=== PATIENT | female | born 1940 | race Caucasian/White ===

== ENCOUNTER → 2016-04-21 | Outpatient (CLI) | payer OTHER ==
[~2016-04-21] MED LIST: ADULT LOW DOSE81 MG PO; ALLOPURINOL 10100 M1 PO; ALLOPURINOL 30300 M2 PO; ANASTROZOLE1 MG PO; ANTACID650 MG PO; ARIMIDEX1 MG PO; ASPIR 8181 MG PO; B-12 DOTS500 MCG PO; BETADINE240 ML TOP; BETADINE30 ML TOP; BIOTIN1 M1 PO; BIOTIN10 MG PO; BIOTIN2500 MCG PO; BUMEX PO; CALCIUM 500+D1 EAC2 PO; CALCIUM 600 +1 EAC1 PO; CALCIUM500 MG PO; CARVEDILOL6.25 MG PO; CICLOPIROX15 GM TP; CIPRO500 MG PO; CLEOCIN HCL150 MG PO; CLEOCIN HCL300 MG PO; CLOTRIMAZOLE10 MG BUCCAL; CO Q-10100 MG PO; COREG6.25 MG PO; COUMADIN 1MG TAB1 M1 NG; COUMADIN 5 MG TA5 M1 PO; DEMADEX20 MG; DEMADEX20 MG PO; DOXYCYCLINE 10100 MG PO; FISH OIL 1,001000 M2 PO; FLAGYL500 MG PO; FUROSEMIDE 20 M20 M1 PO; GABAPENTIN 100100 MG PO; GEMFIBROZIL 60600 MG PO; GENTAMICIN 0.1%15 G2 TOP; HUMALOG100 UNIT/1 SUBQ; HYDROCODONE-APA1 TA1 PO; IRON27 MG PO; K-DUR 20 MEQ T20 MEQ PO; KEFLEX500 M1 PO; LANTUS100 UNIT/M SUBQ; LASIX 40 MG TAB40 M2 PO; LEVEMIR SUBQ; LEVOTHYROXINE0.05 MG PO; LIPITOR 20 MG T20 M1 PO; LISINOPRIL2.5 M1 PO; LISINOPRIL20 MG PO; MAGOX 400400 MG PO; METFORMIN 500500 MG PO; METOLAZONE 2.52.5 M1; METOLAZONE 2.52.5 M1 PO; MILK OF MA2400 MG/10 PO; MINOCIN100 MG PO; MINOCYCLINE 5050 M1 PO; MINOCYCLINE HC100 M2 PO; MIRALAX17 GM PO; NOVOLOG100 UNIT/1 SUBQ; OXYCODONE HCL 55 MG PO; POTASSIUM20 PO; PRADAXA75 MG PO; PROBIOTIC1 EAC1 PO; PYRIDOXINE HCL100 MG PO; RELION NOV100 UNIT/1 SQ; SANTYL OINTMENT30 G1 TOP; SANTYL OINTMENT30 G1 TP; TRINATE TABLET1 TAB PO; TUMS PO; TYLENOL325 MG PO; UNICOMPLEX M TA1 TA1 PO; VANCOCIN 125 M125 M1 MC; VIBRAMYCIN 100100 MG PO; VITAMIN B-121000 MCG PO; VITAMIN B-12500 MCG PO; VITAMIN B-6100 MG PO; VITAMIN B-625 MG PO; VITAMIN C1000 MG PO; VITAMIN D1000 UNI1 PO; VITAMIN D35000 UNIT PO; VITAMIN E400 UNI7 PO; VITAMINC500 PO; ZINC50 M1 PO; ZYVOX600 MG PO
== END ==
LOC: HYPER 07:13
DX: L89.613 Pressure ulcer of right heel, stage 3 (principal); I70.245 Atherosclerosis of native arteries of left leg with ulceration of other part of foot; E11.42 Type 2 diabetes mellitus with diabetic polyneuropathy; R60.9 Edema, unspecified; E11.69 Type 2 diabetes mellitus with other specified complication; Z79.4 Long term (current) use of insulin; E11.22 Type 2 diabetes mellitus with diabetic chronic kidney disease; N18.9 Chronic kidney disease, unspecified; D50.9 Iron deficiency anemia, unspecified; Z95.0 Presence of cardiac pacemaker

== ENCOUNTER → 2016-05-05 | Outpatient (CLI) | payer OTHER | LOC: HYPER 07:07 | DX: L89.613 Pressure ulcer of right heel, stage 3 (principal); L89.893 Pressure ulcer of other site, stage 3; I87.2 Venous insufficiency (chronic) (peripheral); I70.245 Atherosclerosis of native arteries of left leg with ulceration of other part of foot; E11.42 Type 2 diabetes mellitus with diabetic polyneuropathy; I48.91 Unspecified atrial fibrillation; I25.10 Atherosclerotic heart disease of native coronary artery without angina pectoris; E78.00 Pure hypercholesterolemia, unspecified; E11.22 Type 2 diabetes mellitus with diabetic chronic kidney disease; N18.9 Chronic kidney disease, unspecified; I12.9 Hypertensive chronic kidney disease with stage 1 through stage 4 chronic kidney disease, or unspecified chronic kidney disease; E11.69 Type 2 diabetes mellitus with other specified complication; Z79.4 Long term (current) use of insulin; Z95.0 Presence of cardiac pacemaker; Z79.82 Long term (current) use of aspirin; Z85.3 Personal history of malignant neoplasm of breast ==

== ENCOUNTER → 2016-07-06 | Outpatient (CLI) | payer OTHER ==
[~2016-07-06] MED LIST changes: -DOXYCYCLINE 10100 MG PO; -METOLAZONE 2.52.5 M1 PO
== END ==
LOC: HYPER 07:05
DX: I70.245 Atherosclerosis of native arteries of left leg with ulceration of other part of foot (principal); L89.613 Pressure ulcer of right heel, stage 3; L89.899 Pressure ulcer of other site, unspecified stage; E11.42 Type 2 diabetes mellitus with diabetic polyneuropathy; E11.22 Type 2 diabetes mellitus with diabetic chronic kidney disease; I12.9 Hypertensive chronic kidney disease with stage 1 through stage 4 chronic kidney disease, or unspecified chronic kidney disease; N18.9 Chronic kidney disease, unspecified; I48.91 Unspecified atrial fibrillation; Z85.3 Personal history of malignant neoplasm of breast; E78.00 Pure hypercholesterolemia, unspecified; Z95.0 Presence of cardiac pacemaker; Z79.4 Long term (current) use of insulin

== ENCOUNTER 2016-07-07 12:20 | Inpatient (IN) | payer OTHER ==
[~2016-07-07] VITALS: Ht 177.8 cm; Wt 120.2 kg
--- NOTE | ~2016-07-07 | 2DMMODE ---
[facility] [place] [address] 2 D/M-MODE ECHOCARDIOGRAM Name: ETHEL PEOPLES Room #: 210-P ADM IN M.R.#: [id number] Admission: 07/07/16 Attend Phys: Ramirez Maguire, Discharge: Date of : 40 Date of Service: 07/08/16 1136 Report #: [id number] THIS REPORT FOR: //name// APPROVED REPORT EXAM: Comprehensive 2D, Doppler, and color-flow Echocardiogram Patient Location: Echo lab/210 Blood Pressure: 146/71 mmHg HR: 73 bpm Rhythm: Pacemaker Other Information Study Quality: Adequate Indications Congestive Heart Failure Hx: CAD, Afib, PPM, HLP, DM 2D Dimensions RVDd: 46.31 mm LVEF(%): 53.52 (>50%) IVSd: 10.78 (7-11mm) LVOT Diam: 19.38 (18-24mm) LVDd: 51.48 mm PWd: 10.76 (7-11mm) LVDs: 37.18 (25-40mm) IVC: 32.00 mm Aortic Root: 31.00 mm Thakkar's LVEF: 53.52 % Volumes Left Atrial Volume (Systole) Single Plane 4CH: 54.92 mL Single Plane 2CH: 79.31 mL LA ESV Index: 29.00 mL/m2 Aortic Valve AoV Peak Rajiv.: 1.73 m/s AO Peak Gr.: 11.97 mmHg LV Max P.25 mmHg LV Max: 1.03 m/s Mitral Valve MV E Max Rajiv.: 1.89 m/s MV Decel. Time: 129.65 ms Pulmonary Valve [facility] [address] [place] [address] 2 D/M-MODE ECHOCARDIOGRAM Name: ETHEL PEOPLES Room #: 210-P [facility] IN [facility].#: [id number] Admission: 07/07/16 Attend Phys: Ramirez Maguire, Discharge: Date of : 40 Date of Service: 07/08/16 1136 Report #: [id number] PV Peak Rajiv.: 1.13 m/s PV Peak Gr.: 5.16 mmHg Tricuspid Valve TR Peak Rajiv.: 4.66 m/s RAP Estimate: 15.00 mmHg TR Peak Gr.: 86.96 mmHg RVSP: 103.00 mmHg Left Ventricle The left ventricle is normal size. Paradoxical septal and distal inferior wall motion consistent with pacing There is normal left ventricular wall thickness. Left ventricular systolic function is lower limits of normal to mildly depressed. LVEF is 45-50%. Diastolic function is indeterminate. Right Ventricle Right ventricle is dilated. Right ventricle is mildly hypokinetic. Pacemaker lead is present in the right ventricle. Atria Left atrium is mildly dilated. Right atrium is dilated. Aortic Valve Aortic valve is calcified. No aortic regurgitation is present. There is no aortic valvular stenosis. Mitral Valve Mitral valve leaflets are thickened and calcified. Moderate to severe mitral annular calcification. Moderate mitral regurgitation. Tricuspid Valve The tricuspid valve is normal in structure. There is moderate tricuspid regurgitation. The right atrial pressure is estimated at 15 mmHg. There is severe pulmonary hypertension with an estimated PAP of 103mmHg. Pulmonic Valve The pulmonary valve is normal in structure. There is no pulmonic valvular regurgitation. Great Vessels The aortic root is normal in size. Ascending aorta is not well visualized. IVC is dilated and collapses <50% with inspiration. Pericardium There is no pericardial effusion. [facility] [address] [place] [address] 2 D/M-MODE [facility]ARDIOGRAM [facility] Room [facility]: [facility]P [facility] IN M.R.#: [id number] Admission: 07/07/16 Attend Phys: Ramirez Maguire, Discharge: Date of : 40 Date of Service: 07/08/16 1136 Report #: [id number] <Conclusion> Left ventricular systolic function is lower limits of normal to mildly depressed. Paradoxical septal and distal inferior wall motion consistent with pacing. LVEF 45-50%. Aortic valve is calcified without stenosis or insufficiency Mitral valve leaflets are thickened and calcified. Moderate to severe mitral annular calcification. Moderate mitral regurgitation. There is moderate tricuspid regurgitation. The right atrial pressure is estimated at 15 mmHg. There is severe pulmonary hypertension with an estimated PAP of 100 mmHg. There is no pericardial effusion. Pacing wires in right heart. <ELECTRONICALLY SIGNED> By: Sarath Emmanuel MD, FACC 07/08/16 1136 1136 1136 Sarath Emmanuel MD, FACC /INF
--- NOTE | ~2016-07-07 | H ---
[facility] [place] [address] HISTORY AND PHYSICAL Name: ETHEL PEOPLES Room #: 210-P DIS IN M.R.#: [id number] Admission: 07/07/16 Attend Phys: Ramirez Maguire MD, Discharge: 07/09/16 Date of : 40 Report #: [id number] THIS REPORT FOR: //name// CC: Ramirez Babcock DATE OF SERVICE: 07/07/2016 WOUND CARE HISTORY AND PHYSICAL REFERRING PHYSICIAN: Dr. Maguire. CHIEF COMPLAINT: Lower extremity ulcers and edema. HISTORY OF PRESENT ILLNESS: This is a 75-year-old white female, who I had been following for several months for recurrent lower extremity ulcerations and swelling. The patient was just seen by myself 2 days ago and her right heel decubitus ulcer, which had been a stage III, has nearly resolved as well as a plantar foot ulcer on the right, which is also now calloused and nearly resolved and one pretibial ulcer on each lower extremity with associated edema. The patient has already refused any type of compression in the past. The patient is agreeable to elevating her legs. The patient admitted the fact that she had increasing weight gain when I saw her 2 days ago, but refused to be hospitalized then and was hospitalized after she saw Dr. Maguire yesterday afternoon. I have been asked to assist in the wound care at this time. PAST MEDICAL HISTORY: Coronary artery disease with the ischemic cardiomyopathy, sick sinus syndrome, status post permanent pacemaker placement, permanent atrial fibrillation, type 2 diabetes, chronic lower extremity wounds and edema, hypertension, and asthma. CURRENT MEDICATIONS: Reviewed. DRUG ALLERGIES: AMOXICILLIN, LEVAQUIN, METOPROLOL AND PENICILLIN. PHYSICAL EXAMINATION: VITAL SIGNS: Stable. The patient is afebrile. GENERAL: This is alert and oriented x 3, pleasant white female who is in no acute distress. HEENT: Normocephalic, atraumatic. Mucous membranes are moist. Pupils are round. Sclerae are white. LUNGS: Slight diminished breath sounds heard throughout, but no rhonchi or wheezes. HEART: Irregularly irregular with a 2/6 systolic ejection murmur. ABDOMEN: Obese, soft, nontender. EXTREMITIES: The patient has 3+ edema, which is chronic for her with 2 [facility] [address] [place] [address] [facility]YS[facility] Room #: 210-P [facility] IN .R.#: [id number] Admission: 07/07/16 Attend Phys: Ramirez Maguire MD, Discharge: 07/09/16 Date of : 40 Report #: [id number] pretibial ulcerations which are clean and granulating. There is serous fluid draining from these ulcerations. There is also a stage 2 decubitus ulcer on the right heel which has nearly resolved, which is clean and granulating. There is a plantar right foot callus which is dry and intact without tenderness or signs of infection or any open ulceration. Bilateral heels are intact. NEUROLOGIC: Cranial nerves 2-12 grossly intact. Motor and sensory grossly intact. LABORATORY DATA: White count 5.2, hemoglobin 9.3, BUN 47, creatinine 1.2. IMPRESSION: 1. Chronic decubitus ulcer to the right heel stage III - nearly resolved. 2. Chronic callus, plantar aspect of the right foot, overall stable. 3. Superficial ulcerations to bilateral pretibial regions limited to breakdown of skin. 4. Chronic lower extremity edema. 5. Chronic atrial fibrillation. 6. Acute on chronic congestive heart failure. PLAN: At this time, we will use Optifoam Ag to the mid pretibial ulcerations changed every 2 days. Same will be used on the right heel ulcer. The patient refuses any compression wraps at this time. We will make sure we maximize the patient's oral supplementation of protein for healing. We will continue to follow the patient in the hospital. By: 1740 0502 Juan Carlos Mccurdy MD /nt
--- NOTE | ~2016-07-07 | HC ---
[facility] [place] [address] CONSULTATION Name: ETHEL PEOPLES Room #: 210-P DIS IN M.R.#: [id number] Admission: 07/07/16 Attend Phys: Ramirez Magurie MD, Discharge: 07/09/16 Date of : 40 Report #: [id number] THIS REPORT FOR: //name// CC: Ramirez Babcock PRIMARY PHYSICIAN: Sid Babcock MD REFERRAL PHYSICIAN: Ramirez Maguire MD [facility] REASON FOR REFERRAL: Dyspnea. HISTORY OF PRESENT ILLNESS: The patient is a 75-year-old white female who was admitted with heart failure. A pulmonary consultation was requested regarding dyspnea. The patient was last hospitalized in January 2016. She was treated for cellulitis and diabetic foot infection. She has done very well until more recently when she noticed that her weight has increased. She also noticed increasing edema. She is felt to have acute on chronic diastolic heart failure. She is currently on Lasix drip. The patient states that she is much improved. The patient also had a recent echocardiogram done earlier today, which showed reduced ejection fraction of about 45-50%. LV function is felt to be mildly reduced. Aortic valve was unremarkable. There is moderate mitral regurgitation. Pulmonary artery pressure was felt, was measured at 100 mmHg. The patient states that she has been battling obesity for most of her life. Up to 30 years of age, she has taken numerous anorexic agents. She does not recall taking fen-phen. She has also been battling lower extremity edema for most of her life, starting in 20s. Otherwise, denies any recent febrile illness, chest pain, productive cough or hemoptysis. PAST MEDICAL HISTORY: Remarkable for coronary artery disease with ischemic cardiomyopathy, ejection fraction approximately 45%, sick sinus syndrome, status post permanent pacemaker placement; hypocholesterolemia, permanent atrial fibrillation, diabetes mellitus type 2, chronic lower extremity wounds, hypertension, history of asthma, iron deficiency anemia, chronic kidney disease stage 3. She also has a past history of colon cancer along with breast cancer. [address] [address] CONSULTATION Name: ETHEL PEOPLES Room #: 210-P [facility] IN M.R.#: [id number] Admission: 07/07/16 Attend Phys: Ramirez Maguire MD, Discharge: 07/09/16 Date of : 40 Report #: [id number] PAST SURGICAL HISTORY: Remarkable for left mastectomy, partial colectomy, herniorrhaphy, and cataract surgery. ALLERGIES: AMOXICILLIN, which causes rash; LEVOFLOXACIN causes myalgias, METOPROLOL, reactions unknown; and PENICILLIN as above. HOME MEDICATIONS: List reviewed. This would include potassium supplements, torsemide, Arimidex, Zyloprim, NovoLog, MiraLax, Coreg, vitamin D supplements, Lipitor, Levemir, aspirin, vitamin C supplements, ciclopirox, levothyroxine, milk of magnesia. FAMILY HISTORY: Noncontributory. SOCIAL HISTORY: She is . She has no children. She has never smoked. She denies any alcohol use. REVIEW OF SYSTEMS: As mentioned above, is notable for obesity for most of her life along with chronic lower extremity edema. Otherwise, 10-point system review negative. PHYSICAL EXAMINATION: GENERAL: She is awake, alert, in no apparent distress. VITAL SIGNS: Temperature is 98 degrees Fahrenheit, pulse is 74, respiratory rate is 16, blood pressure 143/59 mmHg, saturation 97% on room air. HEENT: Normocephalic and atraumatic. NECK: Supple without any lymphadenopathy or thyromegaly. CHEST: Breath sounds are clear bilaterally without any rales or wheezes. CARDIOVASCULAR: Irregularly irregular, no obvious murmurs or gallop. Pulses are 2+/4 positive bilaterally. BREASTS: Deferred. ABDOMEN: Obese, soft, nontender, no organomegaly or masses felt. GENITOURINARY: Deferred. RECTAL: Deferred. EXTREMITIES: No cyanosis or clubbing, but remarkable for 4+/4+ bilateral pretibial edema. LABORATORY DATA: Chest x-ray shows mild interstitial prominence, otherwise no consolidation . Echocardiogram as mentioned above, reduced EF of approximately 45%, pulmonary artery pressure measuring 100 mmHg, moderate mitral regurgitation. Electrolytes: Sodium 143, potassium 3.5, chloride 105, CO2 of 28, BUN is 47, creatinine is 1.2. WBC is 5200, hemoglobin 9.3, platelets reduced at 93,000. Albumin 3.5. IMPRESSION: 1. Acute on chronic systolic and diastolic heart failure. 2. History of asthma, mild, without evidence of exacerbation at this time. [address] [address] CONSULTATION Name: Room #: 210-P [facility] IN M.R.#: [id number] Admission: 07/07/16 Attend Phys: Ramirez Maguire MD, Discharge: 07/09/16 Date of : 40 Report #: [id number] 3. Severe pulmonary hypertension. Based on her history, this is likely related to anorexic agent with valvular heart disease contributing. The patient states that she has never had a workup in the past. 4. Obesity. She should be screened for possible sleep related breathing disorder. 5. Atrial fibrillation, status post permanent pacemaker placement. 6. Coronary artery disease with ischemic cardiomyopathy as mentioned above. Part of the cardiomyopathy may also be related to valvular heart disease. 7. Diabetes mellitus type 2. 8. Chronic lower extremity edema, may be related to lymphedema, but suspect a component of cor pulmonale. RECOMMENDATION AND DISCUSSION: Agree with plans of diuresis. In terms of asthma, she appears to be stable. We will continue bronchodilator therapy. In regards to pulmonary hypertension, she would benefit from outpatient workup. As mentioned above, suspect she also has a component of cor pulmonale resulting in lower extremity edema. As mentioned, she would benefit from screening for possible sleep related breathing disorder if not already. This can be also discussed in the outpatient setting. Thank you for the consultation. <ELECTRONICALLY SIGNED> By: Praveen Ricks MD 07/09/16 1330 1316 1622 Praveen Ricks MD /nt
[2016-07-07 08:55] VITALS: BP 123/59
[~2016-07-07 12:20] MED LIST changes: -BIOTIN1 M1 PO; -MAGOX 400400 MG PO; -VITAMIN B-12500 MCG PO
[2016-07-07 16:43] VITALS: BP 140/68
[2016-07-07 16:50] LABS: ALBUMIN 3.5 g/dL (3.4-5.0); CALCIUM 8.9 mg/dL (8.5-10.1); CREATININE 1.3 mg/dL (0.6-1.3); POTASSIUM 3.9 mmol/L (3.5-5.1); TOTAL BILIRUBIN 0.6 mg/dL (<0.1-1.0)
[2016-07-07] MEDS ORDERED: BIOTIN1 M1 PO (17:18)
[2016-07-07] MEDS ORDERED: VITAMIN D1000 UNI1 PO (17:20)
[2016-07-07] MEDS ORDERED: VITAMIN B-12500 MCG PO (17:22)
[2016-07-07] MEDS ORDERED: FISH OIL 1,001000 M2 PO (17:23)
[2016-07-07] MEDS ORDERED: MAGOX 400400 MG PO (17:25)
[2016-07-07] MEDS ORDERED: TRINATE TABLET1 TAB PO (17:27)
[2016-07-07] MEDS ORDERED: ZINC50 M1 PO (17:28)
[2016-07-07 19:03] VITALS: BP 123/58
[2016-07-07 19:25] LABS: HEMATOCRIT 28.3 % (37.0-47.0); HEMOGLOBIN 9.3 gm/dL (12.0-15.0); MCH 30.3 pg (26.0-34.0); MCV 91.9 fL (80.0-100.0); RBC 3.07 mil/uL (4.20-5.00); WBC 5.2 thou/uL (4.0-11.0)
[2016-07-07 23:15] VITALS: BP 128/63
[2016-07-08 03:17] LABS: CALCIUM 8.9 mg/dL (8.5-10.1); CREATININE 1.2 mg/dL (0.6-1.3); POTASSIUM 3.5 mmol/L (3.5-5.1)
[2016-07-08 03:30] VITALS: BP 136/67
[2016-07-08 07:20] VITALS: BP 146/71
[2016-07-08 11:15] VITALS: BP 143/59
[2016-07-08 15:10] VITALS: BP 146/69
[2016-07-08 19:37] VITALS: BP 130/54
[2016-07-09 03:43] LABS: CALCIUM 8.9 mg/dL (8.5-10.1); CREATININE 1.4 mg/dL (0.6-1.3); POTASSIUM 3.1 mmol/L (3.5-5.1)
[2016-07-09 03:48] VITALS: BP 122/53
[2016-07-09] MEDS ORDERED: DOXYCYCLINE 10100 MG PO (07:05)
[2016-07-09] MEDS ORDERED: ASPIR 8181 MG PO (07:06)
[2016-07-09] MEDS ORDERED: METOLAZONE 2.52.5 M1 PO (07:38)
[2016-07-09 07:50] VITALS: BP 134/60
[2016-07-09 09:17] VITALS: BP 134/60
[2016-07-09 10:10] VITALS: BP 134/60
== END 2016-07-09 10:58 | disposition home health service (06) | DRG 291 ==
LOC: 2N 12:20
PROVIDERS: Nurse Practitioner Adult Health
DX: I11.0 Hypertensive heart disease with heart failure (principal); L89.613 Pressure ulcer of right heel, stage 3; I25.10 Atherosclerotic heart disease of native coronary artery without angina pectoris; I50.43 Acute on chronic combined systolic (congestive) and diastolic (congestive) heart failure; I25.5 Ischemic cardiomyopathy; I49.5 Sick sinus syndrome; Z96.89 Presence of other specified functional implants; I48.2 Chronic atrial fibrillation; E11.9 Type 2 diabetes mellitus without complications; J45.909 Unspecified asthma, uncomplicated; I27.2 Other secondary pulmonary hypertension; L84 Corns and callosities; E78.00 Pure hypercholesterolemia, unspecified; D64.9 Anemia, unspecified; Z79.82 Long term (current) use of aspirin; Z79.899 Other long term (current) drug therapy; Z88.1 Allergy status to other antibiotic agents; Z88.0 Allergy status to penicillin; Z88.8 Allergy status to other drugs, medicaments and biological substances
CPT/HCPCS: 10081

== ENCOUNTER → 2016-07-21 | Outpatient (CLI) | payer OTHER ==
[~2016-07-21] MED LIST changes: +BIOTIN1 M1 PO; +DOXYCYCLINE 10100 MG PO; +MAGOX 400400 MG PO; +METOLAZONE 2.52.5 M1 PO; +VITAMIN B-12500 MCG PO
== END ==
LOC: HYPER 07:20
DX: L89.613 Pressure ulcer of right heel, stage 3 (principal); L89.899 Pressure ulcer of other site, unspecified stage; I70.245 Atherosclerosis of native arteries of left leg with ulceration of other part of foot; L97.521 Non-pressure chronic ulcer of other part of left foot limited to breakdown of skin; E11.621 Type 2 diabetes mellitus with foot ulcer; E11.22 Type 2 diabetes mellitus with diabetic chronic kidney disease; I12.9 Hypertensive chronic kidney disease with stage 1 through stage 4 chronic kidney disease, or unspecified chronic kidney disease; N18.9 Chronic kidney disease, unspecified; D50.9 Iron deficiency anemia, unspecified; E78.00 Pure hypercholesterolemia, unspecified; Z79.4 Long term (current) use of insulin; Z95.0 Presence of cardiac pacemaker

== ENCOUNTER → 2016-08-18 | Outpatient (CLI) | payer OTHER | LOC: HYPER 07:12 | DX: L89.613 Pressure ulcer of right heel, stage 3 (principal); I87.2 Venous insufficiency (chronic) (peripheral); I70.245 Atherosclerosis of native arteries of left leg with ulceration of other part of foot; E11.42 Type 2 diabetes mellitus with diabetic polyneuropathy; R60.9 Edema, unspecified; I48.91 Unspecified atrial fibrillation; I12.9 Hypertensive chronic kidney disease with stage 1 through stage 4 chronic kidney disease, or unspecified chronic kidney disease; E11.22 Type 2 diabetes mellitus with diabetic chronic kidney disease; N18.9 Chronic kidney disease, unspecified; D50.9 Iron deficiency anemia, unspecified; I25.10 Atherosclerotic heart disease of native coronary artery without angina pectoris; E78.00 Pure hypercholesterolemia, unspecified; Z79.4 Long term (current) use of insulin; Z85.3 Personal history of malignant neoplasm of breast; Z95.0 Presence of cardiac pacemaker ==

== ENCOUNTER 2017-02-14 10:36 | Inpatient (IN) | payer OTHER ==
[~2017-02-14] VITALS: Ht 177.8 cm; Wt 104.3 kg
--- NOTE | ~2017-02-14 | HC ---
[facility] [place] [address] CONSULTATION Name: ETHEL PEOLPES Room #: 441-P [facility] IN M.R.#: [id number] Admission: 02/14/17 Attend Phys: Aditya Case Discharge: 02/16/17 Date of : 40 Report #: [id number] THIS REPORT FOR: //name// CC: Aditya Babcock DATE OF SERVICE: 02/14/2017 [facility] PROGRESS NOTE HISTORY OF PRESENT ILLNESS: The patient is a 76-year-old white woman, known to me from followups in the office and multiple previous hospitalizations at [facility]. The patient had previous episode of cellulitis of lower extremity as well as osteomyelitis of the left foot. Yesterday, I had received a phone call from the patient's and later on, I talked with the patient. It appears she has developed chills and pain in right lower extremity. She has a history of previous cellulitis of lower extremities. At present, the patient denies having had fevers, but actually she had not used a thermometer to document this one way or the other. PAST MEDICAL HISTORY: Colon and breast cancer. 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 Hypertension. Congestive heart failure. Chronic kidney disease. Diabetes mellitus. Stasis dermatitis of lower extremities. History of bilateral heel decubitus, healed. Recurrent cellulitis, right lower extremity. DRUG ALLERGIES: PENICILLIN, LEVAQUIN, METOPROLOL. MEDICATIONS: The patient is on treatment with allopurinol 300 mg daily; anastrozole 1 mg daily; ascorbic acid 500 mg daily; aspirin 81 mg daily; atorvastatin 20 mg daily; calcium 1250 mg if needed; carvedilol 6.25 mg b.i.d.; cholecalciferol 1000 units daily; p.r.n. Tylenol; fish oil daily; Levemir 100 units per mL, 30 units subq daily; levothyroxine 25 mcg p.o. daily; metolazone 2.5 mg b.i.d.; NovoLog 2 units for sugars between 50 and 150 three times a day with meals; polyethylene glycol if needed; KCl 20 mEq daily; torsemide one tablet b.i.d. PHYSICAL EXAMINATION: GENERAL: Well-developed, overweight woman, not toxic looking. VITAL SIGNS: Afebrile, pulse 80, respirations 18, BP 140/72. HEENMT: Within range. NECK: Supple. LUNGS: Clear. HEART: S1, S2. ABDOMEN: Ob[place], [place] [address] CONSULTATION Name: ETHEL PEOPLES Room #: 441-P [facility] IN .R.#: [id number] Admission: 02/14/17 Attend Phys: Aditya Case Discharge: 02/16/17 Date of : 40 Report #: [id number] EXTREMITIES: The right leg and foot erythematous, tender with increased temperature compatible with cellulitis. ASSESSMENT: 1. Recurrent cellulitis, right lower extremity. 2. Diabetes mellitus. 3. History of osteomyelitis, left foot. 4. History of colon and breast cancer. PLANS: Recommend hospitalization at [facility] for parenteral antibiotics for a couple of days ____ elevation of foot. We will discuss the patient's situation with Dr. Bennett. By: 1138 1250 Aditya Teixeira MD /nt
--- NOTE | ~2017-02-14 | HC ---
[facility] [place] [address] CONSULTATION Name: ETHEL PEOPLES Room #: 441-P ADM IN M.R.#: [id number] Admission: 02/14/17 Attend Phys: Aditya Case Discharge: Date of : 40 Report #: [id number] THIS REPORT FOR: //name// CC: Aditya Teixeira Bryan Xaiver Sid Babcock DATE OF SERVICE: 02/15/2017 HISTORY OF PRESENT ILLNESS: The patient is a 76-year-old white woman, admitted to [facility] on multiple previous occasions. [facility] and diagnosed to have cellulitis of right lower extremity. I did discuss situation with Dr. Bradford and recommended hospitalization and starting the patient on . The patient relates that on Tuesday, he started having achiness and redness in right leg, chilling sensation, no actual fever. The patient had previous episode of cellulitis of the lower extremities. At this point in time, emergent admission is again recommended. PAST MEDICAL HISTORY: Colon cancer, partial segmental colectomy. Breast cancer, left, status post mastectomy, lymph node dissection. History of MRSA, osteomyelitis of the left foot, treated with parenteral antibiotic with resolution of problem. Hypertension. Congestive heart failure. Chronic kidney disease. Diabetes mellitus type 2. Stasis dermatitis of lower extremity. Abdominal wall hernia repair. Right foot surgical intervention with multiple screws at the right metatarsophalangeal area. ALLERGIES: PENICILLIN, LEVAQUIN, AMOXICILLIN, METOPROLOL (PATIENT HAS TOLERATED KEFLEX). MEDICATIONS: The patient is on metolazone, calcium carbonate, allopurinol, ascorbic acid, cyanocobalamin, levothyroxine, anastrozole, polyethylene glycol, magnesium oxide, aspirin, spironolactone. atorvastatin, carvedilol, insulin lispro, insulin detemir, torsemide, p.r.n. glucose, glucagon, ceftazidime 2 grams IV every 8 hours. SOCIAL HISTORY: See H and P, old records. FAMILY HISTORY: See H and P, old records. REVIEW OF SYSTEMS: As above and essentially noncontributory. PHYSICAL EXAMINATION: GENERAL: A well-developed woman, not toxic looking. VITAL SIGNS: Temperature 97.7, pulse 80, respirations 22, BP 136/54. Height 5 feet 10 inches, weight 230 pounds. HEENMT: Within range. [address] [address] CONSULTATION Name: ETHEL PEOPLES Room #: 441-P ADM IN .R.#: [id number] Admission: 02/14/17 Attend Phys: Aditya Case Discharge: Date of : 40 Report #: [id number] NECK: Supple, no thyromegaly. BREASTS: Deferred status post left mastectomy. LUNGS: Clear to auscultation. HEART: S1, S2. No gallop or murmur. ABDOMEN: Surgical scar, soft, no masses or megaly. EXTREMITIES: Stasis dermatitis, left leg. Cellulitic changes, right leg, foot. Chronic stasis dermatitis both legs. Surgical scar, left foot, from previous debridement of osteomyelitis, left foot. NEUROLOGIC: Grossly within normal limits. LABORATORY DATA: Sodium 136, potassium 4.1, BUN 79, creatinine 1.6. Glucose 118, 155. WBC 8.1, hemoglobin 10.3. Platelets decreased at 117,000. The patient previously thrombocytopenic. White blood cell count differential reveals 75% segmented neutrophils. ASSESSMENT: 1. Cellulitis, right lower extremity, improved compared to yesterday. 2. Stasis dermatitis, legs. 3. Diabetes mellitus type 2. 4. Chronic kidney disease. 5. Anemia of chronic disease. 6. Thrombocytopenia, question etiology. 7. History of colon and left breast cancer. 8. History of methicillin-resistant Staphylococcus aureus, osteomyelitis of left foot. SUGGESTIONS: The patient will continue coverage with Fortaz, we will decrease dose to 1 gram IV every 8 hours. The patient is already improved today. We will possibly discharge home tomorrow on Keflex [address] Mcdonough, thank you for requesting my suggestions in the care of your patient. <ELECTRONICALLY SIGNED> By: Aditya Teixeira MD 02/16/17 0907 0947 1056 Aditya Teixeira MD /nt
[2017-02-14 16:00] VITALS: BP 136/54
[2017-02-14] MEDS ORDERED: SYNTHROID25 MCG PO (16:29)
[2017-02-14] MEDS ORDERED: METOLAZONE 2.52.5 M1 PO (16:31)
[2017-02-14] MEDS ORDERED: VITAMIN E400 UNIT PO (16:34)
[2017-02-14] MEDS ORDERED: ALDACTONE25 MG PO (16:35)
[2017-02-14 19:12] VITALS: BP 114/45
[2017-02-14 23:48] VITALS: BP 100/67
[2017-02-15 07:20] LABS: ABSOLUTE NEUTROPHILS 6.1 thou/uL (1.4-8.2); BASOPHILS 0.4 % (0.0-2.0); EOSINOPHILS 1.7 % (0.0-3.0); HEMATOCRIT 31.2 % (37.0-47.0); HEMOGLOBIN 10.3 gm/dL (12.0-15.0); LYMPHOCYTES 14.1 % (24.0-44.0); MCH 30.8 pg (26.0-34.0); MCHC 33.1 g/dL (28.0-37.0); MONOCYTES 8.4 % (1.0-8.0); PLATELET COUNT 117 thou/uL (150-400); POLYS 75.4 % (36.0-66.0); RBC 3.35 mil/uL (4.20-5.00); RDW 16.1 % (10.5-14.5); WBC 8.1 thou/uL (4.0-11.0)
[2017-02-15 07:23] LABS: MANUAL DIFF NO
[2017-02-15 07:27] VITALS: BP 115/52
[2017-02-15 07:35] LABS: CALCIUM 9.3 mg/dL (8.5-10.1); CREATININE 1.6 mg/dL (0.6-1.0); POTASSIUM 4.1 mmol/L (3.5-5.1)
[2017-02-15 15:56] VITALS: BP 129/59
[2017-02-15 19:10] VITALS: BP 122/60
[2017-02-16 04:41] VITALS: BP 138/67
[2017-02-16 09:19] VITALS: BP 147/61
[2017-02-16] MEDS ORDERED: KEFLEX250 MG PO (10:32)
[2017-02-16 11:09] VITALS: BP 147/61
== END 2017-02-16 12:49 | disposition home or self-care (01) | DRG 603 ==
LOC: SEN 10:36 → 4S 15:43 → ENTRNSPT 02-16 12:06 → EDTRNSPTSTS 02-16 12:13 → 4S 02-16 12:49
PROVIDERS: Internal Medicine Geriatric Medicine
DX: L03.115 Cellulitis of right lower limb (principal); I13.0 Hypertensive heart and chronic kidney disease with heart failure and stage 1 through stage 4 chronic kidney disease, or unspecified chronic kidney disease; N18.9 Chronic kidney disease, unspecified; E11.22 Type 2 diabetes mellitus with diabetic chronic kidney disease; I50.9 Heart failure, unspecified; I87.2 Venous insufficiency (chronic) (peripheral); I27.20 Pulmonary hypertension, unspecified; D63.8 Anemia in other chronic diseases classified elsewhere; D69.6 Thrombocytopenia, unspecified; Z85.038 Personal history of other malignant neoplasm of large intestine; Z85.3 Personal history of malignant neoplasm of breast; Z86.14 Personal history of Methicillin resistant Staphylococcus aureus infection; Z90.12 Acquired absence of left breast and nipple; Z95.0 Presence of cardiac pacemaker; Z79.899 Other long term (current) drug therapy; Z79.4 Long term (current) use of insulin; Z88.0 Allergy status to penicillin; Z88.1 Allergy status to other antibiotic agents; Z88.8 Allergy status to other drugs, medicaments and biological substances
CPT/HCPCS: 10102

== ENCOUNTER → 2017-04-04 | Outpatient (CLI) | payer OTHER ==
[~2017-04-04] VITALS: Ht 177.8 cm; Wt 104.3 kg
[~2017-04-04] MED LIST changes: +ALDACTONE25 MG PO; +CLOTRIMAZOLE10 MG MM; +CRANBERRY500 MG PO; +KEFLEX250 MG PO; +PRESERVISION A1 EACH PO; +SYNTHROID25 MCG PO; +TRESIBA FL100 UNIT/1; +VITAMIN D31000 UNI2 PO; +VITAMIN E400 UNIT PO
--- NOTE | ~2017-04-04 | P ---
[facility] [place] [address] PROCEDURE REPORT Name: ETHEL PEOPLES Room #: REG [facility].#: [id number] Admission: 04/04/17 Attend Phys: Braxton Valle MD Discharge: Date of : 40 Report #: [id number] THIS REPORT FOR: //name// CC: Braxton Babcock MD DATE OF SERVICE: 04/04/2017 BRIEF HISTORY: The patient is a 76-year-old woman with a personal history of colon cancer and breast cancer with a rising CEA and she reports to me that is up to 18. She also has a history of colon polyps and the last colonoscopy was 4-1/2 years ago. PREOPERATIVE DIAGNOSIS: History of colon cancer with rising CEA. POSTOPERATIVE DIAGNOSES: History of colon cancer with rising CEA with incomplete colonoscopy. MEDICATIONS: Deep sedation with propofol per anesthesia. SPECIMEN: None. ESTIMATED BLOOD LOSS: None. PROCEDURE: Incomplete colonoscopy secondary to poor prep. FINDINGS: Prior to propofol sedation, the procedure of colonoscopy was discussed with the patient as well as potential risks, benefits, and complications. She indicates she understands and desires that we proceed. DESCRIPTION OF PROCEDURE: With the patient in left lateral decubitus position, digital examination was completed, which revealed no abnormalities. Subsequently, the Mobifusion video colonoscope was introduced into the rectum and advanced under direct vision. As we advanced the scope into the colon, pools of liquidy stool were encountered. Initially thought we could suction much of the liquid stool. Actually, we suctioned out about 400-500 mL; but as we got into the descending colon, the stool material became thicker and kept clogging the scope. At this point, we were no longer able to suction out the liquid stool material and it was felt we would not be able to obtain a high quality colonoscopy and therefore, it was felt best to terminate the procedure and have the patient return after additional prepping. Scope was withdrawn. The patient tolerated the procedure well. CONDITION OF THE PATIENT UPON DISCHARGE: Following procedure, the patient [facility] [address] [place] [address] PROCEDURE REPORT Name: SHELTONBEATRIZAlvaro Keller Room #: REG [facility].#: [id number] Admission: 04/04/17 Attend Phys: Braxton Valle MD Discharge: Date of : 40 Report #: [id number] drowsy. She will be discharged home when fully ambulatory. INSTRUCTIONS TO THE PATIENT AND FAMILY AT THE TIME OF DISCHARGE: The patient with history as noted and inadequate prep. Ideally, we will have her do additional prep and return tomorrow. If she cannot return tomorrow, then we will have to have her do a 2-day prep at a later date. <ELECTRONICALLY SIGNED> By: Braxton Valle MD 04/05/17 1927 1127 1647 Braxton Valle MD /nt
== END | disposition home or self-care (01) ==
LOC: GI 08:47
DX: Z08 Encounter for follow-up examination after completed treatment for malignant neoplasm (principal); Z53.8 Procedure and treatment not carried out for other reasons; I11.0 Hypertensive heart disease with heart failure; I50.9 Heart failure, unspecified; E78.5 Hyperlipidemia, unspecified; D64.9 Anemia, unspecified; Z85.038 Personal history of other malignant neoplasm of large intestine; Z86.010 Personal history of colon polyps
CPT/HCPCS: 62110; 62900

== ENCOUNTER → 2017-11-01 | Outpatient (CLI) | payer OTHER ==
[2017-11-01 11:10] VITALS: BP 136/57
== END ==
LOC: SEN 08:56
DX: Z09 Encounter for follow-up examination after completed treatment for conditions other than malignant neoplasm (principal); L03.116 Cellulitis of left lower limb; L03.115 Cellulitis of right lower limb; I48.91 Unspecified atrial fibrillation; E11.9 Type 2 diabetes mellitus without complications; I10 Essential (primary) hypertension

== ENCOUNTER → 2019-06-13 | Outpatient (CLI) | payer OTHER | LOC: SJCVC 13:20 | DX: Z45.018 Encounter for adjustment and management of other part of cardiac pacemaker (principal); R94.31 Abnormal electrocardiogram [ECG] [EKG]; I25.10 Atherosclerotic heart disease of native coronary artery without angina pectoris; I27.20 Pulmonary hypertension, unspecified; I48.91 Unspecified atrial fibrillation; I49.5 Sick sinus syndrome; I89.0 Lymphedema, not elsewhere classified; J45.909 Unspecified asthma, uncomplicated; E11.22 Type 2 diabetes mellitus with diabetic chronic kidney disease; I12.9 Hypertensive chronic kidney disease with stage 1 through stage 4 chronic kidney disease, or unspecified chronic kidney disease; N18.9 Chronic kidney disease, unspecified; E78.00 Pure hypercholesterolemia, unspecified; Z90.49 Acquired absence of other specified parts of digestive tract; Z79.899 Other long term (current) drug therapy ==

== ENCOUNTER 2019-10-31 15:04 | Inpatient (IN) | payer OTHER ==
[~2019-10-31] VITALS: Ht 177.8 cm; Wt 102.4 kg
[~2019-10-31 15:04] MED LIST changes: -CEFDINIR300 MG PO; -CRANBERRY500 M3 PO; -EPOGEN10000 UNIT SUBQ; -LEVO-T50 MCG PO; -METRONIDAZOLE500 M4 PO
[2019-10-31 15:14] VITALS: BP 125/90
[2019-10-31 16:10] LABS: ABSOLUTE NEUTROPHILS 5.2 thou/uL (1.4-8.2); BASOPHILS 0.9 % (0.0-2.0); EOSINOPHILS 3.3 % (0.0-3.0); HEMATOCRIT 30.9 % (37.0-47.0); HEMOGLOBIN 9.9 gm/dL (12.0-15.0); LYMPHOCYTES 22.4 % (24.0-44.0); MCV 93.8 fL (80.0-100.0); MONOCYTES 8.4 % (1.0-8.0); PLATELET COUNT 154 thou/uL (150-400); RDW 17.5 % (10.5-14.5); WBC 7.9 thou/uL (4.0-11.0)
[2019-10-31 16:23] LABS: CALCIUM 9.9 mg/dL (8.5-10.1); CREATININE 2.2 mg/dL (0.6-1.0); INR 1.1; POTASSIUM 4.1 mmol/L (3.5-5.1); PROTIME 11.4 Seconds (9.3-11.4)
[2019-10-31 16:29] LABS: ALBUMIN 3.7 g/dL (3.4-5.0); TOTAL BILIRUBIN 0.8 mg/dL (0.2-1.0); TOTAL PROTEIN 8.3 g/dL (6.4-8.2)
[2019-10-31] MEDS ORDERED: CALCIUM500 MG PO (17:23)
[2019-10-31] MEDS ORDERED: CRANBERRY500 M3 PO (17:24)
[2019-10-31] MEDS ORDERED: LEVO-T50 MCG PO (17:25)
[2019-10-31 18:49] VITALS: BP 106/39
[2019-10-31] MEDS ORDERED: EPOGEN10000 UNIT SUBQ (19:17)
[2019-10-31 19:25] VITALS: BP 106/39
[2019-10-31 20:00] VITALS: BP 125/50
[2019-11-01] VITALS: BP 147/58
[2019-11-01 03:30] VITALS: BP 130/50
[2019-11-01 07:33] VITALS: BP 112/67
--- NOTE | 2019-11-01 07:56 | EKG ---
[facility] [place] [address] ELECTROCARDIOGRAM REPORT Name: ETHEL PEOLPES Room #: 219-P ADM IN M.R.#: [id number] Admission: 10/31/19 Attend Phys: Ramirez Maguire MD, Discharge: Date of : 40 Report #: [id number] THIS REPORT FOR: cc: Sid Babcock MD,Sid Emmanuel,Sarath Hanley MD [facility] ~ THIS REPORT FOR: //name// [facility] ED Test Date: 2019-10-31 Test Time: 15:37:53 Pat Name: ETHEL PEOPLES Department: Room: 219 Gender: F Senior Security Engineer: manolo : 1940 Requested By: Telly Zimmerman Order Number: [id number] MD: Sarath Emmanuel Measurements Intervals [place] Rate: 65 P: 180 MN: 244 QRS: 207 QRSD: 177 T: 80 QT: 490 QTc: 510 Interpretive Statements Ventricular-paced rhythm No further analysis attempted due to paced rhythm Compared to ECG 02/18/2015 19:40:05 Ventricular pacing is now present Electronically Signed On 11-01-2019 7:56:11 CDT by Sarath Emmanuel [email or web address] <ELECTRONICALLY SIGNED> By: Sarath Emmanuel MD, [facility] 11/01/19 0756 [id number] Sarath Emmanuel MD, [facility] /EPI
[2019-11-01 16:17] VITALS: BP 118/47
[2019-11-01 21:01] VITALS: BP 138/55
[2019-11-02 00:02] VITALS: BP 136/58
[2019-11-02 03:16] VITALS: BP 127/49
[2019-11-02 05:18] LABS: HEMATOCRIT 28.5 % (37.0-47.0); HEMOGLOBIN 9.2 gm/dL (12.0-15.0); MCH 30.3 pg (26.0-34.0); MCHC 32.2 g/dL (28.0-37.0); MCV 94.1 fL (80.0-100.0); RBC 3.03 mil/uL (4.20-5.00); RDW 17.7 % (10.5-14.5); WBC 6.7 thou/uL (4.0-11.0)
[2019-11-02 05:29] LABS: CALCIUM 9.2 mg/dL (8.5-10.1); CREATININE 1.9 mg/dL (0.6-1.0); POTASSIUM 4.2 mmol/L (3.5-5.1)
[2019-11-02 07:46] VITALS: BP 123/78
--- NOTE | 2019-11-02 08:53 | HC ---
[facility] [place] [address] CONSULTATION Name: ETHEL PEOLPES Room #: 219-P ADM IN M.R.#: [id number] Admission: 10/31/19 Attend Phys: Ramirez Maguire MD, Discharge: Date of : 40 Report #: [id number] THIS REPORT FOR: cc: Sid Babcock MD,Sid Hunter,Orville Pollard MD ~ CC: Ramirez Babcock DATE OF SERVICE: 11/01/2019 CHIEF COMPLAINT: Infected hematoma, right lower extremity. HISTORY OF PRESENT ILLNESS: This is a 79-year-old female patient who was seen for a pacemaker evaluation by Dr. Teixeira in the office. Apparently, her pacemaker battery is near the end of its lifespan and she needs a replacement pacemaker. However, she also struck her right leg while working in her garage approximately 6 weeks ago when she has had an open ulceration that has recently developed and now has developed some cellulitis and I have been asked to see her with regard to wound care. PAST MEDICAL HISTORY: Positive for history of diabetes mellitus, elevated triglycerides, history of breast cancer, colon cancer, chronic kidney disease, coronary artery disease. She is status post pacemaker placement. MEDICATIONS: Include K-Dur, Coreg, pyridoxine, fish oil, metolazone, vitamin C, aspirin, cyanocobalamin, vitamin D3, magnesium oxide, zinc, torsemide, Zyloprim, NovoLog, polyethylene glycol, Aldactone, Lipitor, calcium carbonate, levothyroxine, insulin. ALLERGIES: PENICILLIN, METOPROLOL, AMOXICILLIN, LEVOFLOXACIN. SOCIAL HISTORY: The patient is currently nonsmoker. Denies alcohol use. FAMILY HISTORY: Noncontributory. REVIEW OF SYSTEMS: CONSTITUTIONAL: The patient denies fever, chills or weight loss. NEUROLOGICAL: The patient denies focal weakness, numbness or tingling. EYES: The patient denies any visual changes, redness or drainage. ENT: The patient denies earache, nasal drainage, sore throat. CARDIOVASCULAR: The patient denies chest pain or palpitations or diaphoresis. PULMONARY: The patient denies cough or shortness of breath. GASTROINTESTINAL: The patient denies nausea, vomiting or abdominal pain. ORTHOPEDIC: The patient complains of pain, swelling, drainage from her right lower extremity. [address] [address] CONSULTATION Name: [facility] Room #: 219-P [facility] IN M.R.#: [id number] Admission: 10/31/19 Attend Phys: Ramirez Maguire MD, Discharge: Date of : 40 Report #: [id number] Other systems in a 14-point review of systems are negative. PHYSICAL EXAMINATION: VITAL SIGNS: At this time include temperature 36.9, pulse 65, respiratory rate 18, blood pressure 112/67. GENERAL: This is a well-developed, well-nourished female patient who appears to be in minimal distress. HEENT: Head normocephalic. Nose and throat clear. NECK: Supple. LUNGS: Clear. HEART: Regular rate and rhythm. ABDOMEN: Soft, bowel sounds present. EXTREMITIES: Examination of the lower extremities demonstrates palpable distal pulses. Feet are pink, warm and dry. There is a 1-2+ edema bilaterally. She has a large oval shaped ulceration of the right lateral lower leg. There is still some hematoma and I have been able to evacuate this with some massage and direct pressure. There is a central portion of granulation tissue. It is unclear to me as to whether there is additional hematoma beneath this area. There is undermining all the way around the ulceration. There is some drainage that is mostly bloody. No obvious purulence. The surrounding skin, however, is erythematous and warm. LABORATORY DATA: White blood cell count 7.9 with a hemoglobin of 9.9. Sodium 135, potassium 4.1, chloride 96, CO2 of 29, BUN 105. Creatinine 2.2, albumin is 3.7. INR is 1.1. No cultures have been yet obtained. CLINICAL IMPRESSION: 1. Traumatic wound with subcutaneous hematoma to the right lower leg, status post evacuation of some old hematoma at bedside today. 2. Diabetes mellitus. 3. Coronary artery disease and history of pacemaker placed and now needing a battery pack replacement. RECOMMENDATIONS: At this point in time, we will recommend that we obtain a culture and sensitivity of the right lower leg. I think she would be benefited by antibiotic therapy. We will ask for some assistance by Dr. Ireland. We will obtain an ultrasound to look for additional soft tissue fluid collection or hematoma. If there is a significant amount remaining, she may require surgical debridement. She is being followed by Cardiology with regard to the need for the pacemaker replacement. I appreciate being asked to see the patient in consultation. <ELECTRONICALLY SIGNED> By: Orville Hunter MD 11/02/19 0853 [id number] Orville Hunter MD /nt
[2019-11-02 10:54] VITALS: BP 123/78
[2019-11-02 11:28] VITALS: BP 123/62
[2019-11-02 20:00] VITALS: BP 127/41
[2019-11-03 04:35] VITALS: BP 131/43
[2019-11-03 05:45] LABS: HEMATOCRIT 27.8 % (37.0-47.0); HEMOGLOBIN 8.9 gm/dL (12.0-15.0); MCH 30.1 pg (26.0-34.0); MCHC 31.9 g/dL (28.0-37.0); MCV 94.3 fL (80.0-100.0); RBC 2.95 mil/uL (4.20-5.00); RDW 17.4 % (10.5-14.5); WBC 6.6 thou/uL (4.0-11.0)
[2019-11-03 06:12] LABS: CALCIUM 9.2 mg/dL (8.5-10.1)
[2019-11-03 07:44] VITALS: BP 128/50
[2019-11-03 15:39] VITALS: BP 151/51
[2019-11-03 18:41] VITALS: BP 127/40
[2019-11-04] VITALS (7 sets, daily range): BP systolic 123–146; BP diastolic 46–90
[2019-11-05 04:05] VITALS: BP 138/48
[2019-11-05 07:15] VITALS: BP 133/54
[2019-11-05 12:00] VITALS: BP 148/56
[2019-11-05] MEDS ORDERED: CEFDINIR300 MG PO (14:19)
[2019-11-05] MEDS ORDERED: METRONIDAZOLE500 M4 PO (14:19)
[2019-11-05 14:45] VITALS: BP 123/78
[2019-11-05 14:55] VITALS: BP 123/78
--- NOTE | 2019-11-15 15:34 | P ---
[facility] [place] [address] PROCEDURE REPORT Name: AUGUSTETHEL Room #: 219-P DIS IN M.R.#: [id number] Admission: 10/31/19 Attend Phys: Ramirez Maguire MD, Discharge: 11/05/19 Date of : 40 Report #: [id number] THIS REPORT FOR: cc: Sid Babcock MD,Gavin García MD, MD ~ CC: Ramirez Babcock PROCEUDRE: ICD generator change PREOPERATIVE DIAGNOSIS: Premature battery depletion. POSTOPERATIVE DIAGNOSIS: Premature battery depletion. HISTORY: The patient is a 79-year-old with history of complete heart block who was noted to have premature battery depletion on her pacemaker. She is here for pacemaker generator exchange. ANESTHESIA: The patient underwent MAC anesthesia with no anesthesia related complications. DESCRIPTION OF PROCEDURE: The patient underwent informed consent. We discussed the details of the procedure including the risks, which include but not limited to bleeding, infection, vascular damage, cardiac perforation, pneumothorax. She understood these risks and is willing to proceed. The patient was brought to EP laboratory in fasting and sedated state and prepped and draped in a sterile fashion. She received IV antibiotics prior to initiation of this procedure. Lidocaine was injected at the prior incision site. Incision was made, the chronic pocket was entered and the old device was disconnected and the new device was connected. The leads were tested and found to be functioning normally. Given her higher risk for infection an antibiotic pouch, Medtronic TYRX pouch was placed in the pocket. The pocket was irrigated with vancomycin and then closed in 2 layers using 2-0 for the deep layer, 3-0 for the middle layer and surgical glue was placed outer skin layer. The patient awoke neurologically and hemodynamically intact. No complications and no significant bleeding. The explanted device was a Medtronic model # RVDR01, serial # [id number]. New device is a Medtronic model # W3DR01, serial # [id number]. Atrial and ventricular leads were both model # 5086. Serial number on the atrial lead was [id number]. The ventricular lead was [id number]. Atrial lead demonstrated an impedance of 340 ohms, pacing threshold 0.5 volts at 0.4 milliseconds. RV lead demonstrated no underlying R waves, pacing impedance 457 ohms and pacing threshold of 1 volt at 0.4 milliseconds. The device was programmed to DDDR 60-130 mode. CONCLUSIONS: [facility] [address] [email or web address] [address] PROCEDURE REPORT Name: AUGUSTETHEL Room #: 219-P [facility] IN M.R.#: [id number] Admission: 10/31/19 Attend Phys: Ramirez Maguire MD, Discharge: 11/05/19 Date of : 40 Report #: [id number] 1. Successful dual-chamber pacemaker generator exchange. 2. Satisfactory atrial and ventricular pacing and sensing thresholds. 3. Implantation of a TYRX antibiotic pouch. <ELECTRONICALLY SIGNED> By: Gavin Teixeira MD 11/15/19 1534 1139 1156 Gavin Teixeira MD /nt
== END 2019-11-05 15:27 | disposition home health service (06) | DRG 258 ==
LOC: ER 15:04 → 2N 16:42 → EROBS 16:42 → 2N 19:46
PROVIDERS: Nurse Practitioner; Nurse Practitioner Adult Health; Physician Assistant; ADMIT Internal Medicine Cardiovascular Disease; ATTEND Internal Medicine Cardiovascular Disease
PROC: 0JCN0ZZ Extirpation of Matter from Right Lower Leg Subcutaneous Tissue and Fascia, Open Approach (ICD-10-PCS; principal; 2019-10-31)
PROC: 3E0102A Introduction of Anti-Infective Envelope into Subcutaneous Tissue, Open Approach (ICD-10-PCS; 2019-11-01)
PROC: 0JPT0PZ Removal of Cardiac Rhythm Related Device from Trunk Subcutaneous Tissue and Fascia, Open Approach (ICD-10-PCS; 2019-11-01)
PROC: 0JH606Z Insertion of Pacemaker, Dual Chamber into Chest Subcutaneous Tissue and Fascia, Open Approach (ICD-10-PCS; 2019-11-01)
DX: T82.111A Breakdown (mechanical) of cardiac pulse generator (battery), initial encounter (principal); I50.23 Acute on chronic systolic (congestive) heart failure; I13.0 Hypertensive heart and chronic kidney disease with heart failure and stage 1 through stage 4 chronic kidney disease, or unspecified chronic kidney disease; L97.409 Non-pressure chronic ulcer of unspecified heel and midfoot with unspecified severity; I42.9 Cardiomyopathy, unspecified; L03.115 Cellulitis of right lower limb; I49.5 Sick sinus syndrome; E78.00 Pure hypercholesterolemia, unspecified; I27.20 Pulmonary hypertension, unspecified; N18.9 Chronic kidney disease, unspecified; G62.9 Polyneuropathy, unspecified; I48.0 Paroxysmal atrial fibrillation; I87.2 Venous insufficiency (chronic) (peripheral); E11.621 Type 2 diabetes mellitus with foot ulcer; S80.11XA Contusion of right lower leg, initial encounter; X58.XXXA Exposure to other specified factors, initial encounter; I25.10 Atherosclerotic heart disease of native coronary artery without angina pectoris; Z85.3 Personal history of malignant neoplasm of breast; Z85.038 Personal history of other malignant neoplasm of large intestine; Z88.1 Allergy status to other antibiotic agents; Z88.0 Allergy status to penicillin; Y82.8 Other medical devices associated with adverse incidents; Y92.89 Other specified places as the place of occurrence of the external cause; Z79.4 Long term (current) use of insulin; Y93.89 Activity, other specified; Y99.8 Other external cause status; Z03.818 Encounter for observation for suspected exposure to other biological agents ruled out
CPT/HCPCS: 10081; 62110; 62900; 70005

== ENCOUNTER → 2019-10-31 | Outpatient (CLI) | payer OTHER ==
[~2019-10-31] MED LIST changes: +CEFDINIR300 MG PO; +CRANBERRY500 M3 PO; +EPOGEN10000 UNIT SUBQ; +LEVO-T50 MCG PO; +METRONIDAZOLE500 M4 PO
== END ==
LOC: SJCVCIMAG 09-25 09:57
PROVIDERS: ATTEND Internal Medicine Cardiovascular Disease
DX: Z45.018 Encounter for adjustment and management of other part of cardiac pacemaker (principal); I08.1 Rheumatic disorders of both mitral and tricuspid valves; E11.22 Type 2 diabetes mellitus with diabetic chronic kidney disease; I13.0 Hypertensive heart and chronic kidney disease with heart failure and stage 1 through stage 4 chronic kidney disease, or unspecified chronic kidney disease; I50.22 Chronic systolic (congestive) heart failure; N18.9 Chronic kidney disease, unspecified; I25.10 Atherosclerotic heart disease of native coronary artery without angina pectoris; I49.5 Sick sinus syndrome; E78.00 Pure hypercholesterolemia, unspecified; I27.20 Pulmonary hypertension, unspecified; L97.409 Non-pressure chronic ulcer of unspecified heel and midfoot with unspecified severity; I48.91 Unspecified atrial fibrillation; I48.19 Other persistent atrial fibrillation; I44.2 Atrioventricular block, complete; Z79.4 Long term (current) use of insulin; Z79.899 Other long term (current) drug therapy

== ENCOUNTER → 2019-11-14 | Outpatient (CLI) | payer OTHER ==
[~2019-11-14] MED LIST changes: +CEFDINIR300 MG PO; +CRANBERRY500 M3 PO; +EPOGEN10000 UNIT SUBQ; +LEVO-T50 MCG PO; +METRONIDAZOLE500 M4 PO
== END ==
LOC: HYPER 10:14
PROVIDERS: ATTEND Emergency Medicine
DX: E11.622 Type 2 diabetes mellitus with other skin ulcer (principal); L97.812 Non-pressure chronic ulcer of other part of right lower leg with fat layer exposed; I70.245 Atherosclerosis of native arteries of left leg with ulceration of other part of foot; L97.521 Non-pressure chronic ulcer of other part of left foot limited to breakdown of skin; S80.11XD Contusion of right lower leg, subsequent encounter; R60.0 Localized edema; E11.42 Type 2 diabetes mellitus with diabetic polyneuropathy; E11.22 Type 2 diabetes mellitus with diabetic chronic kidney disease; I13.0 Hypertensive heart and chronic kidney disease with heart failure and stage 1 through stage 4 chronic kidney disease, or unspecified chronic kidney disease; N18.9 Chronic kidney disease, unspecified; E78.00 Pure hypercholesterolemia, unspecified; I50.9 Heart failure, unspecified; I48.91 Unspecified atrial fibrillation; I87.2 Venous insufficiency (chronic) (peripheral); I25.10 Atherosclerotic heart disease of native coronary artery without angina pectoris; Z79.4 Long term (current) use of insulin; Z95.0 Presence of cardiac pacemaker; Z85.3 Personal history of malignant neoplasm of breast; Z90.49 Acquired absence of other specified parts of digestive tract; Z98.49 Cataract extraction status, unspecified eye; W19.XXXD Unspecified fall, subsequent encounter

== ENCOUNTER → 2019-12-05 | Outpatient (CLI) | payer OTHER | LOC: HYPER 13:39 | PROVIDERS: ATTEND Emergency Medicine | DX: E11.622 Type 2 diabetes mellitus with other skin ulcer (principal); L97.812 Non-pressure chronic ulcer of other part of right lower leg with fat layer exposed; S80.11XD Contusion of right lower leg, subsequent encounter; I70.245 Atherosclerosis of native arteries of left leg with ulceration of other part of foot; L97.521 Non-pressure chronic ulcer of other part of left foot limited to breakdown of skin; R60.0 Localized edema; E11.42 Type 2 diabetes mellitus with diabetic polyneuropathy; E11.22 Type 2 diabetes mellitus with diabetic chronic kidney disease; I13.0 Hypertensive heart and chronic kidney disease with heart failure and stage 1 through stage 4 chronic kidney disease, or unspecified chronic kidney disease; I50.9 Heart failure, unspecified; N18.9 Chronic kidney disease, unspecified; I87.2 Venous insufficiency (chronic) (peripheral); I48.91 Unspecified atrial fibrillation; I25.10 Atherosclerotic heart disease of native coronary artery without angina pectoris; E78.00 Pure hypercholesterolemia, unspecified; Z79.4 Long term (current) use of insulin; Z95.0 Presence of cardiac pacemaker; Z98.49 Cataract extraction status, unspecified eye; Z85.3 Personal history of malignant neoplasm of breast; Z90.49 Acquired absence of other specified parts of digestive tract; W19.XXXD Unspecified fall, subsequent encounter ==

== ENCOUNTER → 2019-12-26 | Outpatient (CLI) | payer OTHER | LOC: HYPER 13:51 | PROVIDERS: ATTEND Emergency Medicine | DX: E11.622 Type 2 diabetes mellitus with other skin ulcer (principal); L97.812 Non-pressure chronic ulcer of other part of right lower leg with fat layer exposed; I70.245 Atherosclerosis of native arteries of left leg with ulceration of other part of foot; L97.521 Non-pressure chronic ulcer of other part of left foot limited to breakdown of skin; S80.11XD Contusion of right lower leg, subsequent encounter; R60.0 Localized edema; E11.42 Type 2 diabetes mellitus with diabetic polyneuropathy; E11.22 Type 2 diabetes mellitus with diabetic chronic kidney disease; I13.0 Hypertensive heart and chronic kidney disease with heart failure and stage 1 through stage 4 chronic kidney disease, or unspecified chronic kidney disease; I50.9 Heart failure, unspecified; N18.9 Chronic kidney disease, unspecified; E78.00 Pure hypercholesterolemia, unspecified; E66.01 Morbid (severe) obesity due to excess calories; I87.2 Venous insufficiency (chronic) (peripheral); I48.91 Unspecified atrial fibrillation; I25.10 Atherosclerotic heart disease of native coronary artery without angina pectoris; Z79.4 Long term (current) use of insulin; Z95.0 Presence of cardiac pacemaker; Z68.33 Body mass index [BMI] 33.0-33.9, adult; Z98.49 Cataract extraction status, unspecified eye; Z85.3 Personal history of malignant neoplasm of breast; W19.XXXD Unspecified fall, subsequent encounter ==

== ENCOUNTER → 2020-07-16 | Outpatient (CLI) | payer OTHER | LOC: SJCVCIMAG 14:48 | PROVIDERS: ATTEND Internal Medicine Cardiovascular Disease | DX: I87.2 Venous insufficiency (chronic) (peripheral) (principal); I25.10 Atherosclerotic heart disease of native coronary artery without angina pectoris; E78.00 Pure hypercholesterolemia, unspecified; M79.89 Other specified soft tissue disorders; I48.91 Unspecified atrial fibrillation; E11.9 Type 2 diabetes mellitus without complications; I10 Essential (primary) hypertension; Z79.4 Long term (current) use of insulin ==

== ENCOUNTER → 2020-07-21 | Outpatient (CLI) | payer OTHER ==
[~2020-07-21] VITALS: Ht 177.8 cm; Wt 108.0 kg
[2020-07-21 12:07] VITALS: BP 95/50
[2020-07-21 12:49] LABS: HEMATOCRIT 25.2 % (37.0-47.0); HEMOGLOBIN 7.9 gm/dL (12.0-15.0); MCHC 31.4 g/dL (28.0-37.0); MCV 89.2 fL (80.0-100.0); RBC 2.83 mil/uL (4.20-5.00); RDW 19.7 % (10.5-14.5); WBC 6.7 thou/uL (4.0-11.0)
[2020-07-21 13:08] LABS: CALCIUM 9.2 mg/dL (8.5-10.1); CREATININE 2.4 mg/dL (0.6-1.0); POTASSIUM 4.9 mmol/L (3.5-5.1)
== END | disposition home or self-care (01) ==
LOC: CATH 08:54
PROVIDERS: ATTEND Nuclear Medicine Nuclear Cardiology
DX: I87.1 Compression of vein (principal); I87.323 Chronic venous hypertension (idiopathic) with inflammation of bilateral lower extremity; M79.89 Other specified soft tissue disorders; I13.0 Hypertensive heart and chronic kidney disease with heart failure and stage 1 through stage 4 chronic kidney disease, or unspecified chronic kidney disease; E11.22 Type 2 diabetes mellitus with diabetic chronic kidney disease; N18.9 Chronic kidney disease, unspecified; I50.20 Unspecified systolic (congestive) heart failure; I48.91 Unspecified atrial fibrillation; I25.5 Ischemic cardiomyopathy; J45.909 Unspecified asthma, uncomplicated; E78.00 Pure hypercholesterolemia, unspecified; E11.40 Type 2 diabetes mellitus with diabetic neuropathy, unspecified; E66.9 Obesity, unspecified; Z98.890 Other specified postprocedural states; Z79.899 Other long term (current) drug therapy; Z79.01 Long term (current) use of anticoagulants; Z79.4 Long term (current) use of insulin; Z85.3 Personal history of malignant neoplasm of breast; Z85.038 Personal history of other malignant neoplasm of large intestine; Z95.0 Presence of cardiac pacemaker

== ENCOUNTER 2020-08-25 02:18 | Emergency (ER) | payer OTHER ==
[~2020-08-25] VITALS: Ht 177.8 cm; Wt 104.3 kg
[2020-08-25 04:15] VITALS: BP 119/51
== END 2020-08-25 04:20 | disposition home or self-care (01) ==
LOC: ER 02:18
DX: I89.0 Lymphedema, not elsewhere classified (principal); E11.22 Type 2 diabetes mellitus with diabetic chronic kidney disease; I12.9 Hypertensive chronic kidney disease with stage 1 through stage 4 chronic kidney disease, or unspecified chronic kidney disease; N18.9 Chronic kidney disease, unspecified; E11.40 Type 2 diabetes mellitus with diabetic neuropathy, unspecified; E78.00 Pure hypercholesterolemia, unspecified; I10 Essential (primary) hypertension; I48.91 Unspecified atrial fibrillation; E66.9 Obesity, unspecified; J45.909 Unspecified asthma, uncomplicated; Z95.0 Presence of cardiac pacemaker; Z85.3 Personal history of malignant neoplasm of breast; Z85.038 Personal history of other malignant neoplasm of large intestine; Z68.33 Body mass index [BMI] 33.0-33.9, adult; Z79.899 Other long term (current) drug therapy; Z79.82 Long term (current) use of aspirin; Z79.4 Long term (current) use of insulin; Z88.1 Allergy status to other antibiotic agents; Z88.0 Allergy status to penicillin; Z88.2 Allergy status to sulfonamides; Z88.8 Allergy status to other drugs, medicaments and biological substances

== ENCOUNTER → 2021-01-15 | Outpatient (CLI) | payer OTHER | LOC: SJCVC 14:02 | PROVIDERS: ATTEND Internal Medicine Cardiovascular Disease | DX: E78.00 Pure hypercholesterolemia, unspecified (principal); I87.2 Venous insufficiency (chronic) (peripheral); M79.89 Other specified soft tissue disorders; I48.91 Unspecified atrial fibrillation; I25.10 Atherosclerotic heart disease of native coronary artery without angina pectoris; I11.0 Hypertensive heart disease with heart failure; I50.22 Chronic systolic (congestive) heart failure; E11.9 Type 2 diabetes mellitus without complications; I49.5 Sick sinus syndrome; E66.9 Obesity, unspecified; Z79.4 Long term (current) use of insulin; Z79.899 Other long term (current) drug therapy; Z88.0 Allergy status to penicillin; Z88.1 Allergy status to other antibiotic agents; Z88.8 Allergy status to other drugs, medicaments and biological substances ==

== ENCOUNTER → 2021-01-27 | Outpatient (CLI) | payer OTHER | LOC: HYPER 08:34 | PROVIDERS: ATTEND Emergency Medicine | DX: E11.621 Type 2 diabetes mellitus with foot ulcer (principal); I87.331 Chronic venous hypertension (idiopathic) with ulcer and inflammation of right lower extremity; L97.411 Non-pressure chronic ulcer of right heel and midfoot limited to breakdown of skin; I70.245 Atherosclerosis of native arteries of left leg with ulceration of other part of foot; L97.521 Non-pressure chronic ulcer of other part of left foot limited to breakdown of skin; E11.42 Type 2 diabetes mellitus with diabetic polyneuropathy; L84 Corns and callosities; R60.0 Localized edema; I48.91 Unspecified atrial fibrillation; I25.10 Atherosclerotic heart disease of native coronary artery without angina pectoris; E78.00 Pure hypercholesterolemia, unspecified; E11.22 Type 2 diabetes mellitus with diabetic chronic kidney disease; I13.0 Hypertensive heart and chronic kidney disease with heart failure and stage 1 through stage 4 chronic kidney disease, or unspecified chronic kidney disease; I50.9 Heart failure, unspecified; N18.9 Chronic kidney disease, unspecified; I49.5 Sick sinus syndrome; Z79.4 Long term (current) use of insulin; Z79.899 Other long term (current) drug therapy; Z95.0 Presence of cardiac pacemaker; Z90.49 Acquired absence of other specified parts of digestive tract; Z90.12 Acquired absence of left breast and nipple; Z98.49 Cataract extraction status, unspecified eye ==

== ENCOUNTER → 2021-02-12 | Outpatient (CLI) | payer OTHER | LOC: HYPER 09:04 | PROVIDERS: ATTEND Emergency Medicine | DX: E11.621 Type 2 diabetes mellitus with foot ulcer (principal); L97.412 Non-pressure chronic ulcer of right heel and midfoot with fat layer exposed; L97.512 Non-pressure chronic ulcer of other part of right foot with fat layer exposed; I70.245 Atherosclerosis of native arteries of left leg with ulceration of other part of foot; L97.521 Non-pressure chronic ulcer of other part of left foot limited to breakdown of skin; I87.2 Venous insufficiency (chronic) (peripheral); L84 Corns and callosities; R60.0 Localized edema; E11.42 Type 2 diabetes mellitus with diabetic polyneuropathy; E11.22 Type 2 diabetes mellitus with diabetic chronic kidney disease; I13.0 Hypertensive heart and chronic kidney disease with heart failure and stage 1 through stage 4 chronic kidney disease, or unspecified chronic kidney disease; I50.9 Heart failure, unspecified; N18.9 Chronic kidney disease, unspecified; I48.91 Unspecified atrial fibrillation; I25.10 Atherosclerotic heart disease of native coronary artery without angina pectoris; E78.00 Pure hypercholesterolemia, unspecified; I49.5 Sick sinus syndrome; Z85.3 Personal history of malignant neoplasm of breast; Z95.0 Presence of cardiac pacemaker; Z98.49 Cataract extraction status, unspecified eye; Z79.4 Long term (current) use of insulin; Z79.899 Other long term (current) drug therapy ==

== ENCOUNTER → 2021-02-26 | Outpatient (CLI) | payer OTHER | LOC: HYPER 09:24 | PROVIDERS: ATTEND Emergency Medicine | DX: E11.621 Type 2 diabetes mellitus with foot ulcer (principal); I70.234 Atherosclerosis of native arteries of right leg with ulceration of heel and midfoot; L97.412 Non-pressure chronic ulcer of right heel and midfoot with fat layer exposed; I70.245 Atherosclerosis of native arteries of left leg with ulceration of other part of foot; L97.521 Non-pressure chronic ulcer of other part of left foot limited to breakdown of skin; I87.2 Venous insufficiency (chronic) (peripheral); L84 Corns and callosities; R60.0 Localized edema; E11.42 Type 2 diabetes mellitus with diabetic polyneuropathy; E11.22 Type 2 diabetes mellitus with diabetic chronic kidney disease; I13.0 Hypertensive heart and chronic kidney disease with heart failure and stage 1 through stage 4 chronic kidney disease, or unspecified chronic kidney disease; I50.9 Heart failure, unspecified; N18.9 Chronic kidney disease, unspecified; I48.91 Unspecified atrial fibrillation; I25.10 Atherosclerotic heart disease of native coronary artery without angina pectoris; E78.00 Pure hypercholesterolemia, unspecified; I49.5 Sick sinus syndrome; Z85.3 Personal history of malignant neoplasm of breast; Z95.0 Presence of cardiac pacemaker; Z98.49 Cataract extraction status, unspecified eye; Z79.4 Long term (current) use of insulin ==

== ENCOUNTER → 2021-04-28 | Outpatient (CLI) | payer OTHER | LOC: HYPER 09:21 | PROVIDERS: ATTEND Emergency Medicine | DX: E11.621 Type 2 diabetes mellitus with foot ulcer (principal); I70.234 Atherosclerosis of native arteries of right leg with ulceration of heel and midfoot; L97.412 Non-pressure chronic ulcer of right heel and midfoot with fat layer exposed; S61.512A Laceration without foreign body of left wrist, initial encounter; I87.2 Venous insufficiency (chronic) (peripheral); L84 Corns and callosities; R60.0 Localized edema; E11.42 Type 2 diabetes mellitus with diabetic polyneuropathy; E11.22 Type 2 diabetes mellitus with diabetic chronic kidney disease; I13.0 Hypertensive heart and chronic kidney disease with heart failure and stage 1 through stage 4 chronic kidney disease, or unspecified chronic kidney disease; I50.9 Heart failure, unspecified; N18.9 Chronic kidney disease, unspecified; I48.91 Unspecified atrial fibrillation; E66.01 Morbid (severe) obesity due to excess calories; I25.10 Atherosclerotic heart disease of native coronary artery without angina pectoris; E78.00 Pure hypercholesterolemia, unspecified; I49.5 Sick sinus syndrome; Z85.3 Personal history of malignant neoplasm of breast; Z95.0 Presence of cardiac pacemaker; Z98.49 Cataract extraction status, unspecified eye; Z79.4 Long term (current) use of insulin; Z68.33 Body mass index [BMI] 33.0-33.9, adult; X58.XXXA Exposure to other specified factors, initial encounter; Y93.89 Activity, other specified; Y92.89 Other specified places as the place of occurrence of the external cause; Y99.8 Other external cause status ==

== ENCOUNTER → 2021-05-19 | Outpatient (CLI) | payer OTHER | LOC: HYPER 08:48 | PROVIDERS: ATTEND Emergency Medicine | DX: E11.621 Type 2 diabetes mellitus with foot ulcer (principal); I70.234 Atherosclerosis of native arteries of right leg with ulceration of heel and midfoot; L97.412 Non-pressure chronic ulcer of right heel and midfoot with fat layer exposed; S61.512D Laceration without foreign body of left wrist, subsequent encounter; I87.2 Venous insufficiency (chronic) (peripheral); L84 Corns and callosities; R60.0 Localized edema; E11.42 Type 2 diabetes mellitus with diabetic polyneuropathy; E11.22 Type 2 diabetes mellitus with diabetic chronic kidney disease; I13.0 Hypertensive heart and chronic kidney disease with heart failure and stage 1 through stage 4 chronic kidney disease, or unspecified chronic kidney disease; I50.9 Heart failure, unspecified; N18.9 Chronic kidney disease, unspecified; I48.91 Unspecified atrial fibrillation; E66.01 Morbid (severe) obesity due to excess calories; I25.10 Atherosclerotic heart disease of native coronary artery without angina pectoris; E78.00 Pure hypercholesterolemia, unspecified; I49.5 Sick sinus syndrome; Z85.3 Personal history of malignant neoplasm of breast; Z95.0 Presence of cardiac pacemaker; Z98.49 Cataract extraction status, unspecified eye; Z79.4 Long term (current) use of insulin; Z68.33 Body mass index [BMI] 33.0-33.9, adult; X58.XXXD Exposure to other specified factors, subsequent encounter ==